=== PATIENT | female | born 1965 | race Caucasian/White ===

== ENCOUNTER → 2018-03-09 | Outpatient (CLI) | payer BC ==
--- NOTE | 2018-03-09 13:28 | RAD ---
BILATERAL LOWER EXTREMITY DUPLEX ARTERY ULTRASOUND Indication: when patient get bug bites or scratches on legs it take a long time for them to heal. pt is not diabetic Comparison: None. Procedure: Real-time grayscale, color flow Doppler, and Doppler spectral waveform analysis of the arterial system of the lower extremity is performed. Findings: Normal triphasic waveforms are present in the common femoral artery, superficial femoral artery, popliteal artery, anterior tibial artery, posterior tibial artery and dorsalis pedis artery. There is elevated peak systolic velocity in the right common femoral artery, 165 cm/s. This may indicate a less than 50% stenosis. No other elevated peak systolic velocity is identified. IMPRESSION: No hemodynamically significant stenosis. Electronically signed by: Tex Higginbotham MD (03/09/2018 1:24 PM) [id number]
== END | disposition home or self-care (01) ==
LOC: US 08:44
PROVIDERS: ATTEND Physician Assistant Medical
DX: I99.8 Other disorder of circulatory system (principal)
CPT/HCPCS: 93925

== ENCOUNTER → 2020-11-17 | Outpatient (CLI) | payer BC | LOC: MAMMO 15:09 | PROVIDERS: ATTEND Physician Assistant Medical | DX: Z12.31 Encounter for screening mammogram for malignant neoplasm of breast (principal) | CPT/HCPCS: 77063; 77067 ==

== ENCOUNTER → 2020-11-25 | Outpatient (CLI) | payer BC ==
--- NOTE | 2020-11-26 08:36 | RAD ---
INDICATION: 55 year-old female presents for further evaluation of abnormalities seen in both breasts on prior mammogram TECHNIQUE: Targeted high resolution sonography of the region of clinical concern was performed. COMPARISON: 11/17/2020 ULTRASOUND FINDINGS: Targeted ultrasound of the mammographic areas of concern was performed. Right breast: 9:00 position, 7 cm from the nipple: A 0.4 x 0.2 x 0.3 cm hypoechoic mass in parallel orientation wit h mild enhanced through transmission may represent a complex cyst. 12:30 position, 6 cm from the nipple: A 0.3 x 0.4 x 0.1 cm nearly anechoic mass with thin internal se ptation, parallel orientation and slightly irregular margins is seen. Left breast: 6:00 position, 2 cm from the nipple: A 0.9 x 0.3 x 0.4 cm nearly anechoic nodule with thin internal s eptations in parallel orientation, possibly cluster of cysts, is seen with mild enhanced through zamarripa smission. 7:30 position, 4 cm from the nipple: A 0.6 x 0.2 x 0.4 cm hypoechoic well-circumscribed mass in paral lel orientation is seen with enhanced through transmission. IMPRESSION: Probably benign findings in both breasts for which short interval follow-up imaging is re quired. RECOMMENDATION: Recommend 6 month ultrasound follow up. BI-RADS 3: Probably Benign Electronically signed by: Juan Green MD (11/26/2020 8:34 AM) [id number]
== END ==
LOC: US 14:56
PROVIDERS: ATTEND Physician Assistant Medical
DX: N60.01 Solitary cyst of right breast (principal); N60.02 Solitary cyst of left breast; N63.24 Unspecified lump in the left breast, lower inner quadrant; N63.11 Unspecified lump in the right breast, upper outer quadrant
CPT/HCPCS: 76641